=== PATIENT | female | born 2000 | race American Indian/Alaskan Native ===

== ENCOUNTER 2021-05-15 16:32 | Emergency (ER) | payer SELFPAY ==
[2021-05-15] MEDS ORDERED: IBUPROFEN 800 MG TAB PO ONE (18:37)
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
[2021-05-15 20:46] VITALS: BP 105/64
== END 2021-05-15 20:43 | disposition home or self-care (01) ==
LOC: ED 16:32
DX: S13.4XXA Sprain of ligaments of cervical spine, initial encounter (principal); S39.92XA Unspecified injury of lower back, initial encounter; Z88.1 Allergy status to other antibiotic agents; Z79.899 Other long term (current) drug therapy; V89.2XXA Person injured in unspecified motor-vehicle accident, traffic, initial encounter; Y93.89 Activity, other specified; Y92.488 Other paved roadways as the place of occurrence of the external cause; Y99.8 Other external cause status
CPT/HCPCS: 72040; 72100; 99283